=== PATIENT | male | born 1960 | race Caucasian/White ===

== ENCOUNTER 2021-03-06 11:05 | Emergency (ER) | payer BC, SELFPAY ==
[2021-03-06 11:22] VITALS: BP 137/70; PULSE 85; RESP 16; TEMP 36.6; O2SAT 96
--- NOTE | 2021-03-06 11:31 | ED.WOUNDLAC ---
HPI - Wound/Laceration General Chief Complaint: Wound/Laceration Stated Complaint: lt hand laceration Time Seen by Provider: 03/06/21 11:32 Source: patient History of Present Illness HPI narrative: .LACERATION TO PALM OF LEFT HAND. 3 CM LACERATION FROM FALL BLEEDING CONTROLLED PATIENT STATES HE WAS TAKING DOWN A WREATH AND SLIPPED IN THE GRAVEL. PATIENT PRESENTS WITH A LACERATION TO LEFT PALM. PATIENT DENIES ANY OTHER INJURIES. Related Data Home Medications Medication Instructions Recorded Confirmed alprazolam 0.5 mg PO HS 03/06/21 03/06/21 metformin 500 mg PO DAILY 03/06/21 03/06/21 Allergies Allergy/AdvReac Type Severity Reaction Status Date / Time cefaclor [From [facility]] Allergy Intermediate Swelling Verified 03/06/21 11:31 of Lip/Tongue/Throat Review of Systems Review of Systems: CONSTITUTIONAL: Denies fever, chills, or sweats. EYES: Denies visual changes, redness, or discharge. ENT: Denies rhinorrhea, congestion, sore throat, or otalgia. CARDIOVASCULAR: Denies chest pain, palpitations, or edema. RESPIRATORY: Denies cough or dyspnea. GASTROINTESTINAL: Denies abdominal pain, nausea, vomiting, or diarrhea. GENITOURINARY: Denies dysuria or hematuria. SKIN: Denies rash or itching. MUSCULOSKELETAL: Denies back pain, joint pain, or myalgia. NEUROLOGIC: Denies headache, numbness, or weakness. PSYCHIATRIC: Denies anxiety or depression. PMFSH Comments At time of signature, agree with nursing past medical, surgical, social and family history. There is no relevant family history pertinent to the presenting complaint Exam Narrative: GENERAL: Well-appearing, well-nourished, and in no acute distress. HEAD: Normocephalic, atraumatic. EYES: PERRLA and EOMI. ENT: Nares clear, no rhinorrhea or epistaxis. Mucous membranes moist. NECK: Supple. CHEST: Clear to auscultation. No respiratory distress. HEART: Regular rate and rhythm. No murmur heard. Normal peripheral pulses. ABDOMEN: Soft, nontender, nondistended, normal active bowel sounds. EXTREMITIES: Normal range of motion. No edema. SKIN: Warm, dry, no rash..LACERATION TO PALM OF LEFT HAND. 3 CM LACERATION FROM FALL BLEEDING CONTROLLED SKIN: Warm, dry, no rash. NEURO: No focal deficits. Alert and oriented x3. Holden Coma Scale Eye Opening: Spontaneous 4 Holden Coma Scale Motor: Obeys Commands 6 Maynard Coma Scale Verbal: Oriented 5 Maynard Coma Scale Total 15 Course Course Level of Care: Express Care Visit Vital Signs Vital signs: Vital Signs Temperature 36.6 C 03/06/21 11:22 Pulse Rate 85 03/06/21 11:22 Respiratory Rate 16 03/06/21 11:22 Blood Pressure 137/70 03/06/21 11:22 Pulse Oximetry 96 03/06/21 11:22 Temperature 36.6 C 03/06/21 11:22 Pulse Rate 85 03/06/21 11:22 Respiratory Rate 16 03/06/21 11:22 Blood Pressure 137/70 03/06/21 11:22 Pulse Oximetry 96 03/06/21 11:22 Addressed elevated BP today. Today's blood pressure higher than recommended range. Discussed importance of follow -up with PCP and possible wildlife veterinarian effects/cardiovascular events related to HTN. Currently patient denies headache, dizziness, vision changes, CP or shortness of breath. Critical dx considered and discussed with pt. Educated patient on red flag s/s and to go to ED if s/s occur. Discussed with pt when to return to [facility] or primary care provider. Pt gave verbal undertstanding, all questions were answered, and pt was agreeable to plan Procedures Laceration Laceration 1: Date: 03/06/21 Time: 11:34 Site: hand (3 CM TO PALM OF LEFT HAND) Side (If applicable): left Size (cm): 3 Description: irregular Depth: simple, single layer Local Anesthetic: lidocaine 1% and other anesthetic (PATIENT REQUESTED LET APPLIED PRIOR TO INJECTION LIDOCAINE FOR NUMBING) Amount of anesthesia used (mL): 3 Pre-repair: irrigated extensively ====== Skin Level ====== Skin layer c
[2021-03-06] MEDS: LIDOCAINE, EPINEPHRINE, TETRACAINE VISCOUS SOLN 3 ML TOPICAL (11:34)
== END 2021-03-06 13:05 | disposition home or self-care (01) ==
PROVIDERS: Emergency Provider Nurse Practitioner Family
DX: S61.412A Laceration without foreign body of left hand, initial encounter (principal); W01.0XXA Fall on same level from slipping, tripping and stumbling without subsequent striking against object, initial encounter; E11.9 Type 2 diabetes mellitus without complications
CPT/HCPCS: 12042; 99213; G0463